=== PATIENT | male | born 1960 | race Caucasian/White ===

== ENCOUNTER 2021-04-19 11:32 | Outpatient (CLI) | payer BC | END 2021-04-19 11:33 | disposition home or self-care (01) | LOC: CSHRAD 11:32 | PROVIDERS: ATTEND Internal Medicine | DX: K70.30 Alcoholic cirrhosis of liver without ascites (principal); K76.6 Portal hypertension | CPT/HCPCS: 76705 ==

== ENCOUNTER 2021-09-01 10:23 | Outpatient (CLI) | payer BC | END 2021-09-01 10:24 | disposition home or self-care (01) | LOC: CSHCT 10:23 | PROVIDERS: ATTEND Physician Assistant Medical | DX: R63.4 Abnormal weight loss (principal); K72.90 Hepatic failure, unspecified without coma; I85.00 Esophageal varices without bleeding; J90 Pleural effusion, not elsewhere classified; J98.11 Atelectasis; K70.31 Alcoholic cirrhosis of liver with ascites | CPT/HCPCS: 74177 ==

== ENCOUNTER → 2022-04-04 | Day surgery (SDC) | payer BC ==
[~2022-04-04] MED LIST: Albumin 25% 200 ML ONE; FLU VACC QS2022-23(6MOS UP)/PF 60 MCG/0.5 ML SYRINGE IM ONE; Lidocaine 1% PF 5 ML VIAL ONE; Sodium Bicarbonate 2.5 MEQ/5 ML VIAL ONE
[2022-04-04 13:58] VITALS: BP 142/64; TEMP 97
== END ==
LOC: CSHULT 12:06
PROVIDERS: ATTEND Physician Assistant Medical
PROC: 0W9G30Z Drainage of Peritoneal Cavity with Drainage Device, Percutaneous Approach (ICD-10-PCS; principal; 2022-04-04)
DX: K70.31 Alcoholic cirrhosis of liver with ascites (principal); I85.00 Esophageal varices without bleeding; K21.9 Gastro-esophageal reflux disease without esophagitis; I10 Essential (primary) hypertension; M19.90 Unspecified osteoarthritis, unspecified site; Z86.010 Personal history of colon polyps; Z79.899 Other long term (current) drug therapy; Z88.8 Allergy status to other drugs, medicaments and biological substances; Z90.49 Acquired absence of other specified parts of digestive tract; Z98.890 Other specified postprocedural states
CPT/HCPCS: 49083; P9047

== ENCOUNTER → 2022-04-18 | Day surgery (SDC) | payer BC ==
[~2022-04-18] MED LIST changes: +Albumin 25% 100 ML ONE; -Albumin 25% 200 ML ONE; -FLU VACC QS2022-23(6MOS UP)/PF 60 MCG/0.5 ML SYRINGE IM ONE
[2022-04-18 11:15] LABS: INR-International Normal Ratio 1.2
== END | disposition home or self-care (01) ==
LOC: CSHULT 10:12
PROVIDERS: ATTEND Physician Assistant Medical
PROC: 0W9G3ZZ Drainage of Peritoneal Cavity, Percutaneous Approach (ICD-10-PCS; principal; 2022-04-18)
DX: R18.8 Other ascites (principal)
CPT/HCPCS: 49083; 85610; P9047

== ENCOUNTER 2022-05-16 10:34 | Day surgery (SDC) | payer BC ==
[2022-05-14 09:58] VITALS: BMI 28.2
[~2022-05-16 10:34] MED LIST changes: -Albumin 25% 100 ML ONE; +FLU VACC QS2022-23(6MOS UP)/PF 60 MCG/0.5 ML SYRINGE IM ONE; -Lidocaine 1% PF 5 ML VIAL ONE; -Sodium Bicarbonate 2.5 MEQ/5 ML VIAL ONE
[2022-05-16] MEDS ORDERED: Sodium Bicarbonate 2.5 MEQ/5 ML VIAL ONE (11:30)
[2022-05-16] MEDS ORDERED: Lidocaine 1% PF 5 ML VIAL ONE (11:30)
[2022-05-16 14:55] VITALS: BP 148/72; TEMP 98.3
== END 2022-05-16 12:30 | disposition home or self-care (01) ==
LOC: CSHULT 10:34
PROVIDERS: ATTEND Physician Assistant Medical
PROC: 0W9G3ZZ Drainage of Peritoneal Cavity, Percutaneous Approach (ICD-10-PCS; principal; 2022-05-16)
DX: R18.8 Other ascites (principal)
CPT/HCPCS: 49083

== ENCOUNTER 2022-05-30 10:14 | Day surgery (SDC) | payer BC ==
[2022-05-30] MEDS ORDERED: Sodium Bicarbonate 2.5 MEQ/5 ML VIAL ONE (10:38)
[2022-05-30] MEDS ORDERED: Lidocaine 1% PF 5 ML VIAL ONE (10:38)
[2022-05-30] MEDS ORDERED: Albumin 25% 200 ML ONE (10:38)
[2022-05-30 11:04] VITALS: BP 140/68; TEMP 98.3
== END 2022-05-30 12:47 | disposition home or self-care (01) ==
LOC: CSHULT 10:14
PROVIDERS: ATTEND Physician Assistant Medical
PROC: 0W9G3ZZ Drainage of Peritoneal Cavity, Percutaneous Approach (ICD-10-PCS; principal; 2022-05-30)
DX: R18.8 Other ascites (principal)
CPT/HCPCS: 49083; P9047

== ENCOUNTER → 2022-06-13 | Day surgery (SDC) | payer BC ==
[2022-06-07 07:49] VITALS: BMI 28.2
[~2022-06-13] MED LIST changes: +Albumin 25% 200 ML ONE; -FLU VACC QS2022-23(6MOS UP)/PF 60 MCG/0.5 ML SYRINGE IM ONE; +Lidocaine 1% PF 5 ML VIAL ONE; +Sodium Bicarbonate 2.5 MEQ/5 ML VIAL ONE
[2022-06-13 11:56] LABS: Hemoglobin 8.2 g/dL (13.5-17.5); Mean Corpuscular Hemoglobin 29.4 pg (27.0-33.0); Mean Corpuscular Volume 91.8 fl (81.2-95.1); Mean Platelet Volume 10.2 fl (7.4-10.4); Platelet Count 130 10x3/uL (150-450); Red Blood Cell (RBC) Count 2.79 10x6/uL (4.32-5.72); White Blood Cell (WBC) Count 4.9 10x3/uL (3.5-10.5)
[2022-06-13 11:59] LABS: INR-International Normal Ratio 1.3; MDiff Complete? YES; Prothrombin Time 13.5 sec (9.5-12.1)
[2022-06-13 12:00] LABS: Anion Gap 11 mmol/L (10-20); BUN (Urea Nitrogen) 12 mg/dL (8.4-25.7); Calc. Creatinine Clearance 98 mL/min (70-130); Calcium 8.4 mg/dL (7.8-10.44); Carbon Dioxide 24 mmol/L (23-31); Chloride 98 mmol/L (98-107); Estimated GFR 77; Glucose 105 mg/dL (80-115); Potassium 3.8 mmol/L (3.5-5.1); Sodium 129 mmol/L (136-145)
[2022-06-13 12:34] LABS: Eosinophils 2 % (0-10); Lymphocytes 10 % (21-51); Monocytes 13 % (0-10); Neutrophil 75 % (42-75)
[2022-06-13 12:36] LABS: Macrocytosis SLIGHT = 6-15 cells (100X) (0-5/hpf); Microcytosis SLIGHT = 6-15 cells (100X) (0-5/hpf)
[2022-06-13 12:37] LABS: Platelet Morphology Comment Appears Decreased
== END ==
LOC: CSHULT 10:55
PROVIDERS: ATTEND Physician Assistant Medical
PROC: 0W9G3ZZ Drainage of Peritoneal Cavity, Percutaneous Approach (ICD-10-PCS; principal; 2022-06-13)
DX: R18.8 Other ascites (principal)
CPT/HCPCS: 49083; 80048; 85025; 85610; P9047

== ENCOUNTER 2022-10-22 06:45 | Emergency (ER) | payer BC, MEDICARE ==
[2022-10-22 07:30] LABS: Bilirubin Neg (Negative); Blood, Urine 10 (Negative); Clarity Clear (Clear); Glucose, Urine (Dipstick) Normal (Negative); Ketone, Urine Negative (Negative); Leukocyte Negative (Negative); Nitrite Negative (Negative); Protein, Urine (Dipstick) 30 mg/dl (Neg-Trace); Urobilinogen Normal mg/dL (Less than 2)
[2022-10-22] MEDS ORDERED: Ketorolac Tromethamine 30 MG/ML VIAL ONE (07:34)
[2022-10-22 07:52] LABS: Bacteria/HPF None Seen HPF (None Seen); CAUTI Indications for Culture Acute Hematuria; RBC/HPF 0-3 HPF (0-3); Squamous Epithelial 0-3 HPF (0-3); WBC/HPF 0-3 HPF (0-3)
[2022-10-22 07:53] LABS: Urine Culture Reflex No No
[2022-10-22 08:11] LABS: #Eosinphils 0.1 10x3/uL (0.0-0.5); #Monocytes 0.5 10x3/uL (0.0-1.1); #Neutrophils 4.1 10x3/uL (1.5-8.4); %Basophils 0.5 % (0.0-2.0); %Eosinophils 1.8 % (0.0-6.0); %Lymphocytes 15.7 % (18.0-47.0); %Monocytes 8.1 % (0.0-10.0); %Neutrophils 73.7 % (40.0-75.0); Hemoglobin 11.1 g/dL (13.5-17.5); Mean Corpuscular HGB CONC 34.8 g/dL (32.0-36.0); Mean Corpuscular Hemoglobin 30.2 pg (27.0-33.0); Mean Corpuscular Volume 86.9 fl (81.2-95.1); Platelet Count 169 10x3/uL (150-450); RBC Distribution Width 13.4 % (11.5-14.5); Red Blood Cell (RBC) Count 3.67 10x6/uL (4.32-5.72); White Blood Cell (WBC) Count 5.5 10x3/uL (3.5-10.5)
[2022-10-22 08:29] LABS: ALT (SGPT) 10 U/L (8-55); AST (SGOT) 9 U/L (5-34); Albumin 3.9 g/dL (3.4-4.8); Alkaline Phosphatase 75 U/L (40-110); Anion Gap 14 mmol/L (10-20); BUN (Urea Nitrogen) 22 mg/dL (8.4-25.7); Bilirubin, Total 0.3 mg/dL (0.2-1.2); Calc. Creatinine Clearance 0 mL/min (70-130); Calcium 9.6 mg/dL (7.8-10.44); Carbon Dioxide 27 mmol/L (23-31); Chloride 100 mmol/L (98-107); Estimated GFR 97; Globulin 3.3 g/dL (2.4-3.5); Glucose 156 mg/dL (80-115); Potassium 3.6 mmol/L (3.5-5.1); Protein, Total 7.2 g/dL (5.8-8.1); Sodium 137 mmol/L (136-145)
== END 2022-10-22 08:55 | disposition home or self-care (01) ==
LOC: CSHERS 06:45
DX: E83.59 Other disorders of calcium metabolism (principal); E11.9 Type 2 diabetes mellitus without complications
CPT/HCPCS: 74176; 80053; 81001; 85025; 96361; 96374; J1885